=== PATIENT | male | born 1960 | race Caucasian/White ===

== ENCOUNTER 2023-01-08 10:12 | Outpatient (CLI) | payer BC, SELFPAY | END 2023-01-08 10:13 | disposition home or self-care (01) | PROVIDERS: PCP Family Medicine; Visit Provider Family Medicine | DX: Z00.00 Encounter for general adult medical examination without abnormal findings (principal); I10 Essential (primary) hypertension; E78.5 Hyperlipidemia, unspecified; Z12.5 Encounter for screening for malignant neoplasm of prostate | CPT/HCPCS: 80048; 80061; 84153 ==